=== PATIENT | male | born 1995 | race African-American/Black ===

== ENCOUNTER 2024-06-16 07:07 | Emergency (ER) | payer MEDICAID ==
[~2024-06-16] VITALS: Ht 185.4 cm; Wt 77.1 kg
[2024-06-16 07:11] VITALS: O2SAT 96
[2024-06-16 07:20] VITALS: BP 156/108; PULSE 64; RESP 18; TEMP 98.5; O2SAT 100
[2024-06-16] MEDS: ONDANSETRON 4MG ODT PO STA (08:27)
[2024-06-16] MEDS: MAGNESIUM/ALUMINUM HYDROXIDE/SIMETHICONE 30ML UDC PO STA (08:27)
[2024-06-16] MEDS: VISCOUS LIDOCAINE 2% 15 ML UDC PO STA (08:27)
[2024-06-16] MEDS: METOCLOPRAMIDE HCL 10MG/2ML VIAL IM ONE (08:27)
[2024-06-16] MEDS: FAMOTIDINE 20MG TABLET PO ONE (08:28)
[2024-06-16 08:39] LABS: CHLORIDE 108 mEq/L (98-107); POTASSIUM 4.3 mEq/L (3.5-5.1); SODIUM 139 mEq/L (136-145)
[2024-06-16 08:41] LABS: CALCIUM 10.7 mg/dL (8.7-10.4); CARBON DIOXIDE 23 mEq/L (21-32)
[2024-06-16 08:46] LABS: CREATININE 1.1 mg/dL (0.6-1.3); GLUCOSE 165 mg/dL (70-105); UREA NITROGEN BLOOD 12 mg/dL (9-23)
[2024-06-16 08:48] LABS: ALANINE AMINOTRANSFERASE 17 IU/L (10-49); ALBUMIN 5.2 g/dL (3.2-4.8); ASPARTATE AMINOTRANSFERASE 31 IU/L (<34); BILIRUBIN DIRECT 0.4 mg/dL (<=3.0); BILIRUBIN TOTAL 1.4 mg/dL (0.1-1.0); PROTEIN TOTAL 8.5 g/dL (6.0-8.3)
[2024-06-16 08:49] LABS: PROTHROMBIN TIME 11.1 sec (9.6-11.0)
[2024-06-16 08:50] LABS: HEMATOCRIT. 44.6 % (42.0-52.0); HEMOGLOBIN. 15.9 g/dL (14.0-18.0); MEAN CORPUSCULAR HEMOGLOBIN 32.4 pg (28.0-32.0); MEAN CORPUSCULAR HGB CONC 35.8 g/dL (31.0-37.0); MEAN CORPUSCULAR VOLUME 90.5 fL (80.0-94.0); MEAN PLATELET VOLUME 10.5 fl (7.4-10.4); PLATELET 287 x1000/uL (130-400); RED BLOOD CELL COUNT 4.93 mill/uL (4.7-6.1); RED CELL DISTRIBUTION WIDTH 14.6 % (11.6-14.6); WHITE BLOOD COUNT 16.7 x1000/uL (4.5-11.0)
[2024-06-16 09:03] LABS: DIFFERENTIAL COMMENT 1
[2024-06-16 09:08] LABS: ETHANOL BLOOD < 10 mg/dL (<10)
[2024-06-16] MEDS ORDERED: FAMO-135 MT (09:35)
[2024-06-16] MEDS ORDERED: ONDA4TAB50 MT (09:35)
[2024-06-16 10:04] LABS: CLARITY URINE CLEAR (CLEAR); COLOR URINE DARK YELLOW (YELLOW); GLUCOSE URINE NEGATIVE (NEGATIVE); KETONES URINE 3+ (NEGATIVE); LEUKOCYTE ESTERASE URINE TRACE (NEGATIVE); NITRITE URINE NEGATIVE (NEGATIVE); OCCULT BLOOD URINE 1+ (NEGATIVE); PH URINE 6.5 (4.5-8.0); PROTEIN URINE 1+ (NEGATIVE); SPECIFIC GRAVITY URINE 1.037 (1.005-1.030)
[2024-06-16 10:13] LABS: PLATELET ESTIMATE NORMAL
[2024-06-16 10:21] LABS: BACTERIA URINE 1+; SQUAMOUS EPITHELIAL CELL URINE RARE /lpf (RARE/1+); WBC URINE 0-2 /hpf (0-2); YEAST URINE NONE SEEN
[2024-06-16 10:40] LABS: *AMPHETAMINES SCREEN URINE NEGATIVE (NEGATIVE); *BARBITURATES SCREEN URINE NEGATIVE (NEGATIVE); *BENZODIAZEPINES SCREEN URINE NEGATIVE (NEGATIVE); *COCAINE SCREEN URINE NEGATIVE (NEGATIVE); METHADONE URINE SCREEN NEGATIVE (NEGATIVE)
[2024-06-16 10:41] LABS: CANNABINOID URINE SCREEN PRESUMPTIVE POSITIVE (NEGATIVE); ECSTASY MDMA SCREEN URINE NEGATIVE (NEGATIVE); OPIATES URINE SCREEN NEGATIVE (NEGATIVE); PHENCYCLIDINE URINE SCREEN NEGATIVE (NEGATIVE)
== END 2024-06-16 10:41 | disposition home or self-care (01) ==
LOC: ER 07:19
DX: A08.4 Viral intestinal infection, unspecified (principal)
CPT/HCPCS: 80076; 80305; 80048; 81003; 80320; 83690; 85025; 85610; 36415; 96372; 99284; Q0162; J2765; G0480